=== PATIENT | male | born 1950 | race Caucasian/White ===

== ENCOUNTER 2017-09-22 07:42 | Inpatient (IN) | payer OTHER ==
[~2017-09-22] VITALS: Ht 172.7 cm; Wt 73.9 kg
[2017-09-22 08:30] LABS: HEMATOCRIT 37.2 % (38.0-50.0); HEMOGLOBIN 12.1 G/DL (12.5-16.6); MCHC 32.5 G/DL (30.0-36.0); MCV 89.2 FL (86-99); PLATELET COUNT 165 K/uL (156-360); RBC DIS.WIDTH-CV 14.6 % (11.8-14.6); RBC DIS.WIDTH-SD 47.3 % (39-53); RED BLOOD COUNT 4.17 M/uL (4.00-5.50); WHITE BLOOD COUNT 9.8 K/uL (4.1-10.2)
[2017-09-22 08:41] LABS: INTER. NORMALIZED RATIO 1.2
[2017-09-22 08:45] LABS: CHLORIDE 102 mEq/L (99-109); POTASSIUM 4.4 mEq/L (3.7-5.4); SODIUM 136 mEq/L (136-147)
[2017-09-22 08:46] LABS: GLUCOSE 234 mg/dL (70-99)
[2017-09-22 08:50] LABS: CREATININE 1.7 mg/dL (0.6-1.3); GFR ESTIMATE (CALCULATED) 43 mL/min/ (58.99-99999)
[2017-09-22 08:51] LABS: UREA NITROGEN (BUN) 38 mg/dL (9-23)
[2017-09-22 08:54] LABS: TROP-I INTERPRETATION NEGATIVE; TROPONIN-I 0.02 ng/mL (0.0-0.30)
[2017-09-22] MEDS ORDERED: NORVASC5 MG PO (12:19)
[2017-09-22] MEDS ORDERED: ZEGERID40 MG PO (12:20)
[2017-09-22] MEDS ORDERED: MYFORTIC360 MG PO (12:20)
[2017-09-22] MEDS ORDERED: PREDNISONE5 MG PO (12:21)
[2017-09-22] MEDS ORDERED: IMODIUM A-D2 M2 PO (12:21)
[2017-09-22] MEDS ORDERED: PROGRAF0.5 MG PO (12:22)
[2017-09-22] MEDS ORDERED: TURMERIC500 M2 PO (12:22)
[2017-09-22] MEDS ORDERED: PROGRAF1 MG PO (12:22)
[2017-09-22] MEDS ORDERED: AMARYL1 MG PO (12:22)
[2017-09-22] MEDS ORDERED: LO-DOSE ASPIRIN81 M1 PO (12:23)
[2017-09-22] MEDS ORDERED: TRADJENTA5 MG PO (12:23)
[2017-09-22] MEDS ORDERED: TOPROL XL50 MG PO (12:23)
[2017-09-22] MEDS ORDERED: PROBIOTIC1 EAC1 PO (12:23)
[2017-09-22 13:30] VITALS: BP 139/66
[2017-09-22 15:40] VITALS: BP 119/64
[2017-09-22 19:43] VITALS: BP 107/51
[2017-09-22 23:39] VITALS: BP 110/51
[2017-09-23 04:35] VITALS: BP 120/87
[2017-09-23 07:20] LABS: CHLORIDE 106 MEQ/L (99-109); CREATININE 1.3 MG/DL (0.6-1.3); GFR ESTIMATE (CALCULATED) 58 mL/min/ (58.99-99999); GLUCOSE 135 mg/dL (70-99); POTASSIUM 4.2 MEQ/L (3.7-5.4); SODIUM 138 MEQ/L (136-147); UREA NITROGEN (BUN) 28 mg/dL (9-23)
[2017-09-23 08:26] VITALS: BP 129/63
[2017-09-23 16:18] VITALS: BP 134/65
== END 2017-09-23 18:04 | disposition home health service (06) | DRG 964 ==
LOC: EME 07:42 → EDOF 10:43 → ENRESERV 10:45 → EDOF 10:51 → ENRESERV 11:33 → 3EAST 12:42
PROVIDERS: Emergency Medicine; Nurse Practitioner Family
DX: S72.002A Fracture of unspecified part of neck of left femur, initial encounter for closed fracture (principal); S32.512A Fracture of superior rim of left pubis, initial encounter for closed fracture; W01.0XXA Fall on same level from slipping, tripping and stumbling without subsequent striking against object, initial encounter; N18.3 Chronic kidney disease, stage 3 (moderate); E11.22 Type 2 diabetes mellitus with diabetic chronic kidney disease; I12.9 Hypertensive chronic kidney disease with stage 1 through stage 4 chronic kidney disease, or unspecified chronic kidney disease; N17.9 Acute kidney failure, unspecified; Z79.82 Long term (current) use of aspirin; Z85.038 Personal history of other malignant neoplasm of large intestine
CPT/HCPCS: 71045; 73502; 73721; 80048; 84484; 85027; 85610; 99281; 99285; J3010; J7030; J7507; J7512; J7518